=== PATIENT | male | born 1960 | race Caucasian/White ===

== ENCOUNTER 2016-10-05 15:51 | Inpatient (IN) | payer OTHER ==
[~2016-10-05] VITALS: Ht 177.8 cm; Wt 69.9 kg
[~2016-10-05 15:51] MED LIST: ASPI81CH43 PO; ATOR20TA50 PO; FER325T PO; FURO40TA4 PO; GLY25T PO; LISI-711 PO; MET25T PO; POTA10TA51 PO; TRAM50TA2 PO
[2016-10-05] MEDS ORDERED: PANTOPRAZOLE SODIUM 40 MG/10 ML VIAL IV STA (16:37)
[2016-10-05] MEDS ORDERED: SODIUM CHLORIDE 0.9% 500 ML IVB ONE (16:37)
[2016-10-05] MEDS ORDERED: HYDROmorphone HCL 2 MG/ML VL IV ONE (16:45)
[2016-10-05] MEDS ORDERED: PROCHLORPERAZINE EDISYLATE 5 MG/ML 2ML VIAL IV ONE (16:45)
[2016-10-05 17:58] LABS: Basophils # (auto) 0 uL; Basophils % (auto) 0.2 % (0.0-2.0); Eosinophils # (auto) 0 uL; Hematocrit 43.3 % (41.0-53.0); Hemoglobin 14.2 g/dL (13.5-17.5); Lymphocytes # (auto) 0.4 uL; Lymphocytes % (auto) 4.5 % (10.0-50.0); Mean Corpuscular Hgb Conc. 32.7 g/dL (32.0-36.0); Mean Corpuscular Volume 91.7 fL (80.0-100.0); Mean Platelet Volume 7.4 fL (7.4-10.4); Monocytes # (auto) 0.3 uL; Monocytes % (auto) 2.9 % (0.0-12.0); Neutrophils # (auto) 8.8 uL; Neutrophils % (auto) 92.4 % (37.0-80.0); Platelet Count (auto) 306 10^3/uL (140-450); Red Cell Distribution Width 16.7 % (11.6-16.0); White Blood Cell 9.5 10^3/uL (4.4-10.8)
[2016-10-05 18:17] LABS: Albumin 4.2 g/dL (3.4-5.0); BUN/Creatinine Ratio 15.7; Bilirubin, Total 0.6 mg/dL (0.2-1.0); Calcium 9.7 mg/dL (8.5-10.1); Magnesium 1.7 mg/dL (1.6-2.6); Potassium 3.4 mmol/L (3.5-5.1); Total Protein 7.7 g/dL (6.4-8.2)
[2016-10-05] MEDS ORDERED: METOCLOPRAMIDE HCL 5MG/ml INJ 2ml VIAL IV ONE (21:00)
[2016-10-05] MEDS ORDERED: DEXTROSE (50%) 50ML SYRG IV PRN (22:00)
[2016-10-05] MEDS ORDERED: ACETAMINOPHEN 325 MG TAB PO PRN (22:00)
[2016-10-05] MEDS ORDERED: PROMETHAZINE HCL 25 MG/ML 1ML IV PRN (22:00)
[2016-10-05] MEDS ORDERED: ASPirin 81 mg TAB PO ONE (22:15)
[2016-10-05] MEDS ORDERED: POTASSIUM CHL 10 Meq TABLET PO ONE (22:15)
[2016-10-05 22:35] VITALS: BP 102/64
[2016-10-05 22:36] LABS: Urine Bilirubin Negative (Negative); Urine Color Yellow (Yellow); Urine Nitrite Negative (Negative); Urine RBC 22 /hpf (0 - 3); Urine Urobilinogen Normal (Negative)
[2016-10-05 22:40] LABS: Urine Blood 1+ /uL (Negative); Urine Glucose 3+ mg/dL (Normal); Urine Ketone 1+ (Negative)
[2016-10-05] MEDS: SODIUM CHLORIDE 0.9% 1,000 ML IV SCH (23:08)
[2016-10-05] MEDS: ATORVASTATIN 20 MG TAB PO SCH (23:13)
[2016-10-05] MEDS: ENOXAPARIN SOD 30 MG/0.3 ML SYRINGE SC SCH (23:13)
[2016-10-05] MEDS: ONDANSETRON HCL 4 MG/2 ML VIAL IV PRN (23:14)
[2016-10-05] MEDS: MORPHINE SULF INJ 2 MG/ML SYRINGE 1ML IV PRN (23:14)
[2016-10-05] MEDS: METOPROLOL TARTRATE 25 MG TAB PO SCH (23:23)
[2016-10-06] MEDS: ACCU-CHEK COMFORT CURVE STRIP VI SCH ×5 (00:27→23:32)
[2016-10-06 04:38] VITALS: BP 127/71
[2016-10-06] MEDS: InsuLIN REG 1unit/0.01ml Soln (100units/ml) SC SCH ×5 (06:00→23:32)
[2016-10-06 07:39] LABS: Basophils # (auto) 0 uL; Basophils % (auto) 0.2 % (0.0-2.0); Eosinophils # (auto) 0 uL; Eosinophils % (auto) 0.2 % (0.0-7.0); Hematocrit 38.4 % (41.0-53.0); Hemoglobin 12.7 g/dL (13.5-17.5); Lymphocytes # (auto) 1.1 uL; Lymphocytes % (auto) 12.6 % (10.0-50.0); Mean Corpuscular Hemoglobin 30.3 pg (28.0-32.0); Mean Platelet Volume 7.2 fL (7.4-10.4); Monocytes # (auto) 0.8 uL; Monocytes % (auto) 9.1 % (0.0-12.0); Neutrophils # (auto) 6.6 uL; Neutrophils % (auto) 77.9 % (37.0-80.0); Platelet Count (auto) 285 10^3/uL (140-450); Red Cell Distribution Width 16.7 % (11.6-16.0); White Blood Cell 8.5 10^3/uL (4.4-10.8)
[2016-10-06] MEDS: FERROUS SULFATE 325 MG TAB PO SCH ×2 (08:00→17:56)
[2016-10-06 08:16] LABS: Albumin 3.5 g/dL (3.4-5.0); BUN/Creatinine Ratio 20.3; Bilirubin, Total 0.4 mg/dL (0.2-1.0); Potassium 3.8 mmol/L (3.5-5.1); Total Protein 6.6 g/dL (6.4-8.2)
[2016-10-06] MEDS: MORPHINE SULF INJ 2 MG/ML SYRINGE 1ML IV PRN ×4 (08:47→22:45)
[2016-10-06] MEDS: ONDANSETRON HCL 4 MG/2 ML VIAL IV PRN ×4 (08:47→22:45)
[2016-10-06 09:00] VITALS: BP 166/95
[2016-10-06] MEDS: ASPirin 81 mg TAB PO SCH (09:51)
[2016-10-06] MEDS: LISINOPRIL 10 MG TAB PO SCH (09:51)
[2016-10-06] MEDS: POTASSIUM CHL 10 Meq TABLET PO SCH (09:51)
[2016-10-06] MEDS: METOPROLOL TARTRATE 25 MG TAB PO SCH ×2 (09:52→22:01)
[2016-10-06] MEDS: FUROSEMIDE 40 MG TAB PO SCH (09:52)
[2016-10-06] MEDS: PANTOPRAZOLE SODIUM 40 MG/10 ML VIAL IV SCH (09:59)
[2016-10-06] MEDS: SODIUM CHLORIDE 0.9% 1,000 ML IV SCH ×2 (11:49→23:23)
[2016-10-06 13:00] VITALS: BP 153/89
[2016-10-06] MEDS ORDERED: cloNIDine HCL 0.1 MG TAB PO PRN (14:15)
[2016-10-06 16:00] VITALS: BP 145/82
[2016-10-06] MEDS: HYDROcodone-ACET 5/325MG TAB PO PRN (20:15)
[2016-10-06] MEDS: ENOXAPARIN SOD 30 MG/0.3 ML SYRINGE SC SCH (20:15)
[2016-10-06] MEDS: ATORVASTATIN 20 MG TAB PO SCH (22:01)
[2016-10-06 22:29] VITALS: BP 122/77
[2016-10-07] MEDS: MORPHINE SULF INJ 2 MG/ML SYRINGE 1ML IV PRN ×5 (03:54→23:31)
[2016-10-07] MEDS: ONDANSETRON HCL 4 MG/2 ML VIAL IV PRN ×5 (03:54→23:32)
[2016-10-07 05:30] VITALS: BP 157/89
[2016-10-07] MEDS: InsuLIN REG 1unit/0.01ml Soln (100units/ml) SC SCH ×3 (06:00→17:25)
[2016-10-07] MEDS: ACCU-CHEK COMFORT CURVE STRIP VI SCH ×3 (06:08→17:25)
[2016-10-07 06:12] LABS: Basophils # (auto) 0 uL; Basophils % (auto) 0.3 % (0.0-2.0); Eosinophils # (auto) 0 uL; Eosinophils % (auto) 0.5 % (0.0-7.0); Hematocrit 36.2 % (41.0-53.0); Hemoglobin 11.9 g/dL (13.5-17.5); Lymphocytes # (auto) 0.8 uL; Lymphocytes % (auto) 11.6 % (10.0-50.0); Mean Corpuscular Volume 90.9 fL (80.0-100.0); Mean Platelet Volume 7.2 fL (7.4-10.4); Monocytes # (auto) 0.5 uL; Monocytes % (auto) 8.2 % (0.0-12.0); Neutrophils # (auto) 5.2 uL; Neutrophils % (auto) 79.4 % (37.0-80.0); Platelet Count (auto) 256 10^3/uL (140-450); Red Cell Distribution Width 16.9 % (11.6-16.0); White Blood Cell 6.5 10^3/uL (4.4-10.8)
[2016-10-07 06:53] LABS: Albumin 3.5 g/dL (3.4-5.0); Bilirubin, Total 0.6 mg/dL (0.2-1.0); Calcium 8.8 mg/dL (8.5-10.1); Potassium 3.4 mmol/L (3.5-5.1); Total Protein 6.5 g/dL (6.4-8.2)
[2016-10-07 08:00] VITALS: BP 157/94
[2016-10-07] MEDS: FERROUS SULFATE 325 MG TAB PO SCH ×2 (08:13→17:28)
[2016-10-07] MEDS: PANTOPRAZOLE SODIUM 40 MG/10 ML VIAL IV SCH (09:12)
[2016-10-07] MEDS: LISINOPRIL 10 MG TAB PO SCH (09:13)
[2016-10-07] MEDS: ASPirin 81 mg TAB PO SCH (09:13)
[2016-10-07] MEDS: METOPROLOL TARTRATE 25 MG TAB PO SCH ×2 (09:13→22:19)
[2016-10-07] MEDS: FUROSEMIDE 40 MG TAB PO SCH (09:13)
[2016-10-07] MEDS: POTASSIUM CHL 10 Meq TABLET PO SCH (09:14)
[2016-10-07 12:00] VITALS: BP 185/97
[2016-10-07] MEDS: SODIUM CHLORIDE 0.9% 1,000 ML IV SCH (12:10)
[2016-10-07 13:27] VITALS: BP 150/90
[2016-10-07] MEDS: HYDROcodone-ACET 5/325MG TAB PO PRN ×2 (14:38→20:19)
[2016-10-07 16:00] VITALS: BP 146/86
[2016-10-07] MEDS: ENOXAPARIN SOD 30 MG/0.3 ML SYRINGE SC SCH (20:20)
[2016-10-07 22:00] VITALS: BP 154/91
[2016-10-07] MEDS: ATORVASTATIN 20 MG TAB PO SCH (22:19)
[2016-10-07] MEDS: PANTOPRAZOLE 40 MG TAB PO SCH (22:20)
[2016-10-08] MEDS: ACCU-CHEK COMFORT CURVE STRIP VI SCH ×5 (00:15→23:39)
[2016-10-08] MEDS: SODIUM CHLORIDE 0.9% 1,000 ML IV SCH ×2 (00:16→03:08)
[2016-10-08] MEDS: ONDANSETRON HCL 4 MG/2 ML VIAL IV PRN ×3 (03:31→20:30)
[2016-10-08] MEDS: MORPHINE SULF INJ 2 MG/ML SYRINGE 1ML IV PRN ×3 (03:32→20:30)
[2016-10-08] MEDS: InsuLIN REG 1unit/0.01ml Soln (100units/ml) SC SCH ×5 (05:31→23:39)
[2016-10-08 05:51] VITALS: BP 160/92
[2016-10-08 07:04] LABS: INR 1.1 (0.9-1.15); Partial Thromboplastin Time 27.8 sec (22.64-33.71); Prothrombin Time 11.3 sec (9.37-12.3)
[2016-10-08] MEDS ORDERED: LIDOCAINE VISCOUS 2% 15ML UD ONE (07:15)
[2016-10-08] MEDS ORDERED: SODIUM CHLORIDE LOCK 10 ML ONE (07:15)
[2016-10-08] MEDS ORDERED: diphenhdrAMINE HCL 50 MG/1 ML VL ONE (07:15)
[2016-10-08] MEDS: FERROUS SULFATE 325 MG TAB PO SCH ×2 (08:00→17:25)
[2016-10-08] MEDS: LISINOPRIL 10 MG TAB PO SCH (08:44)
[2016-10-08] MEDS: METOPROLOL TARTRATE 25 MG TAB PO SCH ×2 (08:45→21:24)
[2016-10-08 09:00] VITALS: BP 153/95
[2016-10-08] MEDS: FUROSEMIDE 40 MG TAB PO SCH (09:31)
[2016-10-08] MEDS: POTASSIUM CHL 10 Meq TABLET PO SCH (09:31)
[2016-10-08] MEDS: ASPirin 81 mg TAB PO SCH (09:31)
[2016-10-08] MEDS: PANTOPRAZOLE 40 MG TAB PO SCH (09:32)
[2016-10-08] MEDS: MIDAZOLAM HCL 5 MG/ML-1ML VIAL ONE ×2 (10:20→10:23)
[2016-10-08] MEDS: fentaNYL CITRATE 100 MCG/2 ML VL ONE ×2 (10:20→10:23)
[2016-10-08] MEDS: METOCLOPRAMIDE HCL 10 MG TAB PO SCH ×2 (11:59→21:24)
[2016-10-08 13:00] VITALS: BP 158/84
[2016-10-08 17:00] VITALS: BP 172/97
[2016-10-08] MEDS: HYDROcodone-ACET 5/325MG TAB PO PRN (17:30)
[2016-10-08] MEDS: ENOXAPARIN SOD 30 MG/0.3 ML SYRINGE SC SCH (20:12)
[2016-10-08 21:10] VITALS: BP 130/75
[2016-10-08] MEDS: ATORVASTATIN 20 MG TAB PO SCH (21:24)
[2016-10-09] MEDS: MORPHINE SULF INJ 2 MG/ML SYRINGE 1ML IV PRN ×2 (00:18→05:14)
[2016-10-09] MEDS: ONDANSETRON HCL 4 MG/2 ML VIAL IV PRN ×2 (00:18→05:14)
[2016-10-09] MEDS: SODIUM CHLORIDE 0.9% 1,000 ML IV SCH (01:08)
[2016-10-09 04:53] VITALS: BP 134/79
[2016-10-09] MEDS: InsuLIN REG 1unit/0.01ml Soln (100units/ml) SC SCH ×2 (05:21→12:00)
[2016-10-09] MEDS: ACCU-CHEK COMFORT CURVE STRIP VI SCH ×2 (05:21→12:00)
[2016-10-09 08:30] VITALS: BP 165/88
[2016-10-09] MEDS: FERROUS SULFATE 325 MG TAB PO SCH (08:47)
[2016-10-09] MEDS: ASPirin 81 mg TAB PO SCH (08:47)
[2016-10-09] MEDS: POTASSIUM CHL 10 Meq TABLET PO SCH (08:48)
[2016-10-09] MEDS: FUROSEMIDE 40 MG TAB PO SCH (08:48)
[2016-10-09] MEDS: METOCLOPRAMIDE HCL 10 MG TAB PO SCH (08:48)
[2016-10-09] MEDS: METOPROLOL TARTRATE 25 MG TAB PO SCH (08:49)
[2016-10-09] MEDS: LISINOPRIL 10 MG TAB PO SCH (08:49)
[2016-10-09 11:50] VITALS: BP 147/86
[2016-10-09 12:30] VITALS: BP 129/71
== END 2016-10-09 13:00 | disposition home or self-care (01) | DRG 48 ==
LOC: EDBD 15:51 → ER 15:53 → OVERFLOW 15:54 → CENTRAL 22:35
PROVIDERS: ADMIT Internal Medicine; ATTEND Internal Medicine Pulmonary Disease
PROC: 0DB68ZX Excision of Stomach, Via Natural or Artificial Opening Endoscopic, Diagnostic (ICD-10-PCS; principal; 2016-10-08 10:18)
DX: E11.43 Type 2 diabetes mellitus with diabetic autonomic (poly)neuropathy (principal); E11.21 Type 2 diabetes mellitus with diabetic nephropathy; K31.84 Gastroparesis; E11.65 Type 2 diabetes mellitus with hyperglycemia; E86.0 Dehydration; I25.10 Atherosclerotic heart disease of native coronary artery without angina pectoris; D63.8 Anemia in other chronic diseases classified elsewhere; I12.9 Hypertensive chronic kidney disease with stage 1 through stage 4 chronic kidney disease, or unspecified chronic kidney disease; N18.2 Chronic kidney disease, stage 2 (mild); E11.22 Type 2 diabetes mellitus with diabetic chronic kidney disease; E11.319 Type 2 diabetes mellitus with unspecified diabetic retinopathy without macular edema; Z79.82 Long term (current) use of aspirin; Z79.899 Other long term (current) drug therapy; Z82.3 Family history of stroke; Z82.49 Family history of ischemic heart disease and other diseases of the circulatory system; Z82.5 Family history of asthma and other chronic lower respiratory diseases; Z95.1 Presence of aortocoronary bypass graft; Z90.49 Acquired absence of other specified parts of digestive tract
CPT/HCPCS: 36415; 71010; 74176; 80053; 81001; 82150; 82962; 83036; 83690; 83735; 84484; 85025; 85610; 85730; 93005; 94761; 96361; 96374; 96375; C9113; J1815; J2250; J2405

== ENCOUNTER 2023-04-13 08:43 | Inpatient (IN) | payer MEDICAID, OTHER ==
[~2023-04-13] VITALS: Ht 177.8 cm; Wt 86.8 kg
[~2023-04-13 08:43] MED LIST changes: -GLY25T PO; +GLYB2.5T9 PO
[2023-04-13] MEDS ORDERED: SODIUM CHLORIDE 0.9% 1,000 ML IV ONE ×2 (09:00→14:15)
[2023-04-13 09:34] VITALS: O2SAT 98
[2023-04-13 09:40] LABS: Basophils # (auto) 0 10 ^3/uL (0-0.2); Basophils % (auto) 0.8 % (0.0-2.0); Eosinophils # (auto) 0.1 10 ^3/uL (0-0.8); Eosinophils % (auto) 1.1 % (0.0-7.0); Lymphocytes # (auto) 0.5 10 ^3/uL (0.4-5.4); Mean Corpuscular Volume 103.7 fL (80.0-100.0); Monocytes # (auto) 0.5 10 ^3/uL (0-1.3); Monocytes % (auto) 8.8 % (0.0-12.0); Neutrophils # (auto) 4.7 10 ^3/uL (1.6-8.6)
[2023-04-13 09:42] LABS: Hematocrit 28.4 % (41.0-53.0); Lymphocytes % (auto) 8.4 % (10.0-50.0); Mean Corpuscular Hemoglobin 36.6 pg (28.0-32.0); Mean Corpuscular Hgb Conc. 35.3 g/dL (32.0-36.0); Neutrophils % (auto) 80.9 % (37.0-80.0); Red Blood Cells 2.74 10^6/uL (4.5-5.90); Red Cell Distribution Width 12.3 % (11.8-14.3); White Blood Cell 5.8 10^3/uL (4.4-10.8)
[2023-04-13 09:51] LABS: INR 1.05 (0.9-1.15); Partial Thromboplastin Time 22.9 SEC (24.5-34.5)
[2023-04-13 09:57] LABS: Albumin 3.7 g/dL (3.4-5.0); Potassium 4.2 mmol/L (3.5-5.1)
[2023-04-13 10:01] LABS: BUN/Creatinine Ratio 13.7 (10.0-20.0); Bilirubin, Total 0.4 mg/dL (0.2-1.0); Total Protein 7.6 g/dL (6.4-8.2)
[2023-04-13 12:44] LABS: Urine Amorphous Crystal FEW /hpf (None Seen); Urine Bacteria NONE SEEN /hpf (None Seen); Urine Blood Negative /uL (Negative); Urine Specific Gravity 1.014 (1.001-1.035); Urine WBC 1 /hpf (0 - 3)
[2023-04-13] MEDS: SODIUM CHLORIDE 0.9% 1,000 ML IV SCH ×3 (13:14→23:30)
[2023-04-13 13:24] LABS: Magnesium 2.2 mg/dL (1.6-2.6); Phosphorus 4.5 mg/dL (2.5-4.90)
[2023-04-13] MEDS ORDERED: DEXTROSE (50%) 50ML SYRG IV PRN (14:15)
[2023-04-13 15:00] LABS: Basophils # (auto) 0 10 ^3/uL (0-0.2); Eosinophils # (auto) 0 10 ^3/uL (0-0.8); Lymphocytes # (auto) 0.4 10 ^3/uL (0.4-5.4); Mean Corpuscular Volume 104.1 fL (80.0-100.0); Neutrophils # (auto) 3.9 10 ^3/uL (1.6-8.6); White Blood Cell 4.9 10^3/uL (4.4-10.8)
[2023-04-13 15:02] LABS: Basophils % (auto) 0.8 % (0.0-2.0); Eosinophils % (auto) 0.8 % (0.0-7.0); Hematocrit 25.2 % (41.0-53.0); Hemoglobin 8.9 g/dL (13.5-17.5); Lymphocytes % (auto) 8.8 % (10.0-50.0); Mean Corpuscular Hemoglobin 36.6 pg (28.0-32.0); Mean Corpuscular Hgb Conc. 35.1 g/dL (32.0-36.0); Monocytes # (auto) 0.4 10 ^3/uL (0-1.3); Monocytes % (auto) 9.2 % (0.0-12.0); Neutrophils % (auto) 80.4 % (37.0-80.0); Red Blood Cells 2.42 10^6/uL (4.5-5.90); Red Cell Distribution Width 12.2 % (11.8-14.3)
[2023-04-13 15:08] LABS: Magnesium 2.2 mg/dL (1.6-2.6)
[2023-04-13 15:16] LABS: Albumin 3.5 g/dL (3.4-5.0); BUN/Creatinine Ratio 14.5 (10.0-20.0); Bilirubin, Total 0.3 mg/dL (0.2-1.0); Phosphorus 4.4 mg/dL (2.5-4.90)
[2023-04-13 15:24] LABS: Calcium 14.4 mg/dL (8.5-10.1)
[2023-04-13 16:24] LABS: Creatinine, Urine 78 mg/dL (30.0-125.0); Sodium Urine 52 mmol/L (40-220)
[2023-04-13] MEDS: InsuLIN REG 1unit/0.01ml Soln (100units/ml) SC SCH ×2 (16:49→22:00)
[2023-04-13] MEDS: ACCU-CHEK COMFORT CURVE STRIP VI SCH ×2 (16:49→22:15)
[2023-04-13] MEDS ORDERED: amLODIPine BESYLATE 5 MG TAB PO ONE (17:00)
[2023-04-13 17:23] LABS: Protein, Urine 84.3 mg/dL (0.0-11.9)
[2023-04-13] MEDS: FERROUS SULFATE 325mg EC TAB PO SCH (18:36)
[2023-04-13 19:30] VITALS: PULSE 96; RESP 16; O2SAT 98
[2023-04-13] MEDS ORDERED: ATORVASTATIN 20 MG TAB PO SCH (22:00)
[2023-04-13] MEDS: METOPROLOL TARTRATE 25 MG TAB PO SCH (22:16)
[2023-04-13] MEDS: ATORVASTATIN 20 MG TAB PO SCH (22:17)
[2023-04-14] VITALS (9 sets, daily range): BP systolic 66–167; BP diastolic 8–96; PULSE 66–103; RESP 15–19; TEMP 98–99.2; O2SAT 92–98
[2023-04-14] MEDS ORDERED: PNEUMOCOCCAL VACC POLYS 25 MCG/0.5 ML VIAL IM ONE (02:30)
[2023-04-14] MEDS: ACCU-CHEK COMFORT CURVE STRIP VI SCH ×4 (05:13→21:33)
[2023-04-14] MEDS: SODIUM CHLORIDE 0.9% 1,000 ML IV SCH ×6 (05:13→21:34)
[2023-04-14] MEDS: InsuLIN REG 1unit/0.01ml Soln (100units/ml) SC SCH ×4 (05:13→21:33)
[2023-04-14 06:07] LABS: RPR Non Reactive (Non Reactive)
[2023-04-14 06:10] LABS: BUN/Creatinine Ratio 15.3 (10.0-20.0); Calcium 12.9 mg/dL (8.5-10.1); Phosphorus 3.5 mg/dL (2.5-4.90); Potassium 3.8 mmol/L (3.5-5.1); Uric Acid 6.1 mg/dL (3.5-7.2)
[2023-04-14] MEDS: ASPirin 81 mg TAB PO SCH (09:22)
[2023-04-14] MEDS: FERROUS SULFATE 325mg EC TAB PO SCH ×2 (09:22→18:15)
[2023-04-14] MEDS: amLODIPine BESYLATE 5 MG TAB PO SCH (09:22)
[2023-04-14] MEDS: METOPROLOL TARTRATE 25 MG TAB PO SCH ×2 (09:24→21:32)
[2023-04-14] MEDS ORDERED: FUROSEMIDE 40 MG TAB PO SCH (10:00)
[2023-04-14] MEDS ORDERED: LISINOPRIL 20 MG TAB PO SCH (10:00)
[2023-04-14] MEDS ORDERED: POTASSIUM CHL 20 Meq TABLET PO ONE (14:15)
[2023-04-14 15:12] LABS: % Iron Saturation 7.8 % (20-55)
[2023-04-14 15:20] LABS: Potassium 4.1 mmol/L (3.5-5.1)
[2023-04-14 15:45] LABS: BUN/Creatinine Ratio 15.1 (10.0-20.0); Bilirubin, Total 0.5 mg/dL (0.2-1.0); Total Protein 6.7 g/dL (6.4-8.2)
[2023-04-14 16:01] LABS: Ferritin 92.1 ng/mL (10-322)
[2023-04-14 16:06] LABS: Folate (Folic Acid) > 24.00 ng/mL (5.38-24)
[2023-04-14] MEDS: ATORVASTATIN 20 MG TAB PO SCH (21:32)
[2023-04-14] MEDS: DOCUSATE SOD 100 MG CAP PO SCH (21:32)
[2023-04-15] VITALS (9 sets, daily range): BP systolic 146–162; BP diastolic 71–85; PULSE 71–96; RESP 16–18; TEMP 97.2–98.4; O2SAT 96–99
[2023-04-15] MEDS: SODIUM CHLORIDE 0.9% 1,000 ML IV SCH ×4 (01:12→11:34)
[2023-04-15] MEDS: InsuLIN REG 1unit/0.01ml Soln (100units/ml) SC SCH ×4 (06:24→21:31)
[2023-04-15] MEDS: ACCU-CHEK COMFORT CURVE STRIP VI SCH ×4 (06:24→21:30)
[2023-04-15 06:47] LABS: Basophils # (auto) 0 10 ^3/uL (0-0.2); Eosinophils # (auto) 0.1 10 ^3/uL (0-0.8); Lymphocytes # (auto) 0.6 10 ^3/uL (0.4-5.4); Monocytes # (auto) 0.5 10 ^3/uL (0-1.3); Neutrophils # (auto) 3.6 10 ^3/uL (1.6-8.6)
[2023-04-15 06:51] LABS: Basophils % (auto) 0.8 % (0.0-2.0); Eosinophils % (auto) 2.9 % (0.0-7.0); Hematocrit 22.8 % (41.0-53.0); Hemoglobin 8.3 g/dL (13.5-17.5); Lymphocytes % (auto) 11.9 % (10.0-50.0); Mean Corpuscular Hemoglobin 37.7 pg (28.0-32.0); Mean Corpuscular Hgb Conc. 36.3 g/dL (32.0-36.0); Mean Corpuscular Volume 103.9 fL (80.0-100.0); Monocytes % (auto) 9.4 % (0.0-12.0); Nucleated Red Blood Cells % 0.1 %; Red Blood Cells 2.19 10^6/uL (4.5-5.90); Red Cell Distribution Width 12.4 % (11.8-14.3); White Blood Cell 4.9 10^3/uL (4.4-10.8)
[2023-04-15 07:07] LABS: Immunoglobulin G, Serum 1353 mg/dL (603-1613)
[2023-04-15 07:19] LABS: Calcium 11.6 mg/dL (8.5-10.1); Potassium 3.8 mmol/L (3.5-5.1)
[2023-04-15 07:24] LABS: BUN/Creatinine Ratio 13.9 (10.0-20.0); Bilirubin, Total 0.5 mg/dL (0.2-1.0); Magnesium 1.9 mg/dL (1.6-2.6); Total Protein 6.6 g/dL (6.4-8.2); Uric Acid 5.7 mg/dL (3.5-7.2)
[2023-04-15] MEDS: METOPROLOL TARTRATE 25 MG TAB PO SCH ×2 (08:46→21:30)
[2023-04-15] MEDS: DOCUSATE SOD 100 MG CAP PO SCH ×2 (08:46→21:30)
[2023-04-15] MEDS: ASPirin 81 mg TAB PO SCH (08:46)
[2023-04-15] MEDS: FERROUS SULFATE 325mg EC TAB PO SCH ×2 (08:46→18:06)
[2023-04-15] MEDS: amLODIPine BESYLATE 5 MG TAB PO SCH (08:47)
[2023-04-15] MEDS ORDERED: SENNA 8.6 MG TAB PO ONE (09:45)
[2023-04-15] MEDS ORDERED: FLEET ENEMA(ADULT) 135 ML PR ONE ×2 (13:15→13:45)
[2023-04-15] MEDS ORDERED: POTASSIUM CHL 20 Meq TABLET PO ONE (14:00)
[2023-04-15] MEDS: ATORVASTATIN 20 MG TAB PO SCH (21:30)
[2023-04-16] VITALS (8 sets, daily range): BP systolic 90–160; BP diastolic 57–87; PULSE 53–88; RESP 16–18; TEMP 97.7–98.6; O2SAT 97–100
[2023-04-16] MEDS: SODIUM CHLORIDE 0.9% 1,000 ML IV SCH ×2 (01:00→12:37)
[2023-04-16 06:02] LABS: BUN/Creatinine Ratio 13.1 (10.0-20.0)
[2023-04-16] MEDS: ACCU-CHEK COMFORT CURVE STRIP VI SCH ×4 (06:32→21:48)
[2023-04-16] MEDS: InsuLIN REG 1unit/0.01ml Soln (100units/ml) SC SCH ×4 (06:33→21:48)
[2023-04-16] MEDS: DOCUSATE SOD 100 MG CAP PO SCH ×2 (09:14→21:47)
[2023-04-16] MEDS: LACTULOSE 20Gm/30ML SOLN PO SCH (09:14)
[2023-04-16] MEDS: ASPirin 81 mg TAB PO SCH (09:14)
[2023-04-16] MEDS: FERROUS SULFATE 325mg EC TAB PO SCH ×2 (09:14→18:47)
[2023-04-16] MEDS: METOPROLOL TARTRATE 25 MG TAB PO SCH ×2 (09:14→21:47)
[2023-04-16] MEDS: amLODIPine BESYLATE 5 MG TAB PO SCH (09:15)
[2023-04-16] MEDS: ATORVASTATIN 20 MG TAB PO SCH (21:46)
[2023-04-17] VITALS (9 sets, daily range): BP systolic 135–170; BP diastolic 63–85; PULSE 51–87; RESP 18–19; TEMP 97.9–98.6; O2SAT 98–100
[2023-04-17] MEDS: SODIUM CHLORIDE 0.9% 1,000 ML IV SCH ×3 (01:11→23:27)
[2023-04-17] MEDS: ACCU-CHEK COMFORT CURVE STRIP VI SCH ×4 (05:55→21:56)
[2023-04-17] MEDS: InsuLIN REG 1unit/0.01ml Soln (100units/ml) SC SCH ×4 (05:55→21:58)
[2023-04-17 06:23] LABS: BUN/Creatinine Ratio 11.8 (10.0-20.0); Potassium 3.8 mmol/L (3.5-5.1)
[2023-04-17] MEDS: LACTULOSE 20Gm/30ML SOLN PO SCH (09:32)
[2023-04-17] MEDS: DOCUSATE SOD 100 MG CAP PO SCH ×2 (09:33→21:53)
[2023-04-17] MEDS: FERROUS SULFATE 325mg EC TAB PO SCH ×2 (09:33→17:54)
[2023-04-17] MEDS: METOPROLOL TARTRATE 25 MG TAB PO SCH ×2 (09:34→21:53)
[2023-04-17] MEDS: amLODIPine BESYLATE 5 MG TAB PO SCH (09:34)
[2023-04-17] MEDS: ASPirin 81 mg TAB PO SCH (09:34)
[2023-04-17] MEDS ORDERED: FUROSEMIDE 20 MG TAB PO ONE (11:15)
[2023-04-17 12:08] LABS: BUN/Creatinine Ratio 12.4 (10.0-20.0); Calcium 10.8 mg/dL (8.5-10.1); Potassium 3.9 mmol/L (3.5-5.1)
[2023-04-17] MEDS: ATORVASTATIN 20 MG TAB PO SCH (21:52)
[2023-04-18 05:00] VITALS: BP 151/64; PULSE 85; RESP 20; TEMP 98.2; O2SAT 98
[2023-04-18 05:59] LABS: Basophils # (auto) 0 10 ^3/uL (0-0.2); Eosinophils # (auto) 0.2 10 ^3/uL (0-0.8); Hematocrit 23.4 % (41.0-53.0); Hemoglobin 8.4 g/dL (13.5-17.5); Lymphocytes # (auto) 0.7 10 ^3/uL (0.4-5.4); Monocytes # (auto) 0.4 10 ^3/uL (0-1.3); Neutrophils # (auto) 2.7 10 ^3/uL (1.6-8.6); Red Blood Cells 2.27 10^6/uL (4.5-5.90); Red Cell Distribution Width 12.1 % (11.8-14.3); White Blood Cell 4.1 10^3/uL (4.4-10.8)
[2023-04-18 06:04] LABS: Basophils % (auto) 1.2 % (0.0-2.0); Eosinophils % (auto) 5.3 % (0.0-7.0); Lymphocytes % (auto) 16.5 % (10.0-50.0); Mean Corpuscular Hemoglobin 37.1 pg (28.0-32.0); Monocytes % (auto) 10.1 % (0.0-12.0); Neutrophils % (auto) 66.9 % (37.0-80.0); Nucleated Red Blood Cells % 0.2 %
[2023-04-18 06:11] LABS: BUN/Creatinine Ratio 11.8 (10.0-20.0); Calcium 10.5 mg/dL (8.5-10.1); Potassium 3.4 mmol/L (3.5-5.1)
[2023-04-18] MEDS: ACCU-CHEK COMFORT CURVE STRIP VI SCH ×4 (06:33→21:34)
[2023-04-18] MEDS: InsuLIN REG 1unit/0.01ml Soln (100units/ml) SC SCH ×4 (06:35→21:34)
[2023-04-18 08:00] VITALS: BP_SYST 124; BP_SYST 166; BP_DIAS 70; BP_DIAS 83; PULSE 78; PULSE 79; PULSE 82; PULSE 84; RESP 16; RESP 18; TEMP 97.8; TEMP 97.9; O2SAT 100
[2023-04-18] MEDS ORDERED: POTASSIUM CHL 20 Meq TABLET PO ONE (08:45)
[2023-04-18] MEDS: DOCUSATE SOD 100 MG CAP PO SCH ×2 (10:00→21:30)
[2023-04-18] MEDS: LACTULOSE 20Gm/30ML SOLN PO SCH (10:00)
[2023-04-18] MEDS: amLODIPine BESYLATE 5 MG TAB PO SCH (10:15)
[2023-04-18] MEDS: ASPirin 81 mg TAB PO SCH (10:15)
[2023-04-18] MEDS: METOPROLOL TARTRATE 50 MG TAB PO SCH ×2 (10:16→21:31)
[2023-04-18] MEDS: FERROUS SULFATE 325mg EC TAB PO SCH ×2 (10:16→16:42)
[2023-04-18 12:00] VITALS: BP 167/92; PULSE 85; RESP 18; TEMP 98.5; O2SAT 100
[2023-04-18] MEDS: SODIUM CHLORIDE 0.9% 1,000 ML IV SCH (15:30)
[2023-04-18 16:00] VITALS: BP 159/60; PULSE 76; RESP 16; TEMP 98.4; O2SAT 99
[2023-04-18] MEDS: hydrALAZINE HCL 20 MG/ML VL IV PRN ×2 (16:26→22:40)
[2023-04-18] MEDS ORDERED: HYDROcodone-ACET 5/325MG TAB PO PRN (17:30)
[2023-04-18] MEDS: HYDROcodone-ACET 5/325MG TAB PO PRN (18:24)
[2023-04-18 20:00] VITALS: PULSE 78; PULSE 80; RESP 16
[2023-04-18] MEDS: ATORVASTATIN 20 MG TAB PO SCH (21:31)
[2023-04-18 22:00] VITALS: BP 156/84; PULSE 83; RESP 20; TEMP 98.4; O2SAT 99
[2023-04-18] MEDS: TEMAZEPAM 15 MG CAP PO PRN (22:33)
[2023-04-19] VITALS (8 sets, daily range): BP systolic 124–156; BP diastolic 70–82; PULSE 61–86; RESP 15–18; TEMP 97.9–98.7; O2SAT 97–100
[2023-04-19] MEDS: SODIUM CHLORIDE 0.9% 1,000 ML IV SCH ×3 (00:28→21:33)
[2023-04-19] MEDS: HYDROcodone-ACET 5/325MG TAB PO PRN ×3 (00:31→22:50)
[2023-04-19 05:57] LABS: BUN/Creatinine Ratio 10.6 (10.0-20.0); Calcium 9.5 mg/dL (8.5-10.1); Magnesium 1.5 mg/dL (1.6-2.6); Potassium 3.7 mmol/L (3.5-5.1)
[2023-04-19] MEDS: InsuLIN REG 1unit/0.01ml Soln (100units/ml) SC SCH ×4 (06:07→21:40)
[2023-04-19] MEDS: ACCU-CHEK COMFORT CURVE STRIP VI SCH ×4 (06:07→21:34)
[2023-04-19] MEDS ORDERED: MAGNESIUM OXIDE 400 MG TAB PO ONE (09:00)
[2023-04-19] MEDS ORDERED: MIDAZOLAM HCL 2MG/2ML 2ml VIAL (1mg/ml) IV ONE (10:00)
[2023-04-19] MEDS ORDERED: fentaNYL CITRATE 100 MCG/2 ML VL IV ONE (10:00)
[2023-04-19] MEDS: DOCUSATE SOD 100 MG CAP PO SCH ×2 (10:00→21:43)
[2023-04-19] MEDS: LACTULOSE 20Gm/30ML SOLN PO SCH (10:00)
[2023-04-19] MEDS: ASPirin 81 mg TAB PO SCH (10:01)
[2023-04-19] MEDS: FERROUS SULFATE 325mg EC TAB PO SCH ×2 (10:01→19:00)
[2023-04-19] MEDS: amLODIPine BESYLATE 5 MG TAB PO SCH (10:02)
[2023-04-19] MEDS ORDERED: LIDOCAINE 2%HCL (LOCAL ANESTH.) INJ 10ml MDV ONE (10:38)
[2023-04-19] MEDS: METOPROLOL TARTRATE 50 MG TAB PO SCH ×2 (19:13→21:43)
[2023-04-19] MEDS: ATORVASTATIN 20 MG TAB PO SCH (21:42)
[2023-04-19] MEDS: TEMAZEPAM 15 MG CAP PO PRN (22:50)
[2023-04-20] VITALS (7 sets, daily range): BP systolic 142–167; BP diastolic 69–83; PULSE 60–79; RESP 15–18; TEMP 98–98.4; O2SAT 96–100
[2023-04-20] MEDS: METOPROLOL TARTRATE 50 MG TAB PO SCH ×3 (05:01→22:03)
[2023-04-20] MEDS: InsuLIN REG 1unit/0.01ml Soln (100units/ml) SC SCH ×4 (06:07→22:01)
[2023-04-20] MEDS: ACCU-CHEK COMFORT CURVE STRIP VI SCH ×4 (06:07→22:02)
[2023-04-20 07:00] LABS: Potassium 4.3 mmol/L (3.5-5.1)
[2023-04-20 07:05] LABS: BUN/Creatinine Ratio 10.4 (10.0-20.0); Calcium 9.9 mg/dL (8.5-10.1); Magnesium 1.9 mg/dL (1.6-2.6)
[2023-04-20] MEDS: DOCUSATE SOD 100 MG CAP PO SCH ×2 (10:00→22:03)
[2023-04-20] MEDS: LACTULOSE 20Gm/30ML SOLN PO SCH (10:00)
[2023-04-20] MEDS: FERROUS SULFATE 325mg EC TAB PO SCH ×2 (10:46→18:24)
[2023-04-20] MEDS: ASPirin 81 mg TAB PO SCH (10:46)
[2023-04-20] MEDS: amLODIPine BESYLATE 5 MG TAB PO SCH (10:47)
[2023-04-20] MEDS: SODIUM CHLORIDE 0.9% 1,000 ML IV SCH ×2 (10:49→14:30)
[2023-04-20 11:24] LABS: INR 1.09 (0.9-1.15); Partial Thromboplastin Time 30.8 SEC (24.5-34.5)
[2023-04-20] MEDS: HYDROcodone-ACET 5/325MG TAB PO PRN ×2 (11:47→22:03)
[2023-04-20] MEDS: TEMAZEPAM 15 MG CAP PO PRN (22:03)
[2023-04-20] MEDS: ATORVASTATIN 20 MG TAB PO SCH (22:03)
[2023-04-21] VITALS (8 sets, daily range): BP systolic 120–161; BP diastolic 70–88; PULSE 49–81; RESP 15–18; TEMP 97.4–98.3; O2SAT 90–100
[2023-04-21] MEDS: SODIUM CHLORIDE 0.9% 1,000 ML IV SCH ×2 (03:50→17:10)
[2023-04-21 05:50] LABS: Urine Bacteria NONE SEEN /hpf (None Seen); Urine Blood Negative /uL (Negative); Urine Specific Gravity 1.013 (1.001-1.035); Urine WBC 1 /hpf (0 - 3)
[2023-04-21] MEDS: METOPROLOL TARTRATE 50 MG TAB PO SCH ×3 (05:55→22:24)
[2023-04-21] MEDS: ACCU-CHEK COMFORT CURVE STRIP VI SCH ×4 (06:48→22:25)
[2023-04-21] MEDS: InsuLIN REG 1unit/0.01ml Soln (100units/ml) SC SCH ×4 (06:49→22:27)
[2023-04-21 07:00] LABS: Potassium 3.9 mmol/L (3.5-5.1)
[2023-04-21 07:08] LABS: BUN/Creatinine Ratio 9.9 (10.0-20.0); Calcium 9.6 mg/dL (8.5-10.1); Magnesium 1.8 mg/dL (1.6-2.6)
[2023-04-21] MEDS: FERROUS SULFATE 325mg EC TAB PO SCH ×2 (08:00→18:31)
[2023-04-21] MEDS ORDERED: fentaNYL CITRATE 100 MCG/2 ML VL ONE (09:43)
[2023-04-21] MEDS ORDERED: MIDAZOLAM HCL 2MG/2ML 2ml VIAL (1mg/ml) ONE (09:43)
[2023-04-21] MEDS ORDERED: MEPERIDINE HCL (50 MG/ML) 1 ML VIAL ONE (09:43)
[2023-04-21] MEDS ORDERED: PROPOFOL 10 MG/ML 20 ML IV ONE (09:51)
[2023-04-21] MEDS ORDERED: DexAMETHasone SOD PHOS 10MG/1ML VIAL INJ ONE (09:51)
[2023-04-21] MEDS ORDERED: ONDANSETRON HCL 4 MG/2 ML VIAL IV ONE (09:55)
[2023-04-21] MEDS: amLODIPine BESYLATE 5 MG TAB PO SCH (10:00)
[2023-04-21] MEDS: LACTULOSE 20Gm/30ML SOLN PO SCH (10:00)
[2023-04-21] MEDS: ASPirin 81 mg TAB PO SCH (10:00)
[2023-04-21] MEDS: DOCUSATE SOD 100 MG CAP PO SCH ×2 (10:00→22:23)
[2023-04-21] MEDS ORDERED: ceFAZolin 1GM/50ML 100 ML IV ONE (10:07)
[2023-04-21] MEDS ORDERED: MORPHINE SULFATE 4 MG/ML SYR/VIAL IV PRN (10:30)
[2023-04-21] MEDS ORDERED: MIDAZOLAM HCL 2MG/2ML 2ml VIAL (1mg/ml) IV PRN (10:30)
[2023-04-21] MEDS ORDERED: LABETALOL HCL 5 MG/ML 4ML SYRINGE IV PRN (10:30)
[2023-04-21] MEDS ORDERED: ePHEDrine SULFATE 50 MG/ML AMP IV PRN (10:30)
[2023-04-21] MEDS ORDERED: HYDROmorphone HCL 2 MG/ML VL/or syr IV PRN (10:30)
[2023-04-21] MEDS ORDERED: ONDANSETRON HCL 4 MG/2 ML VIAL IV PRN (10:30)
[2023-04-21] MEDS: BUPIVACAINE 0.25% INJ 50ML VIAL ONE ×2 (10:43→11:30)
[2023-04-21] MEDS: HYDROcodone-ACET 5/325MG TAB PO PRN (18:59)
[2023-04-21] MEDS: TEMAZEPAM 15 MG CAP PO PRN (22:23)
[2023-04-21] MEDS: ATORVASTATIN 20 MG TAB PO SCH (22:23)
[2023-04-22 05:00] VITALS: BP 110/63; PULSE 77; RESP 18; TEMP 97.3; O2SAT 98
[2023-04-22 06:05] LABS: Basophils # (auto) 0 10 ^3/uL (0-0.2); Basophils % (auto) 0.1 % (0.0-2.0); Eosinophils # (auto) 0 10 ^3/uL (0-0.8); Hemoglobin 8.2 g/dL (13.5-17.5); Lymphocytes # (auto) 0.4 10 ^3/uL (0.4-5.4); Monocytes # (auto) 0.3 10 ^3/uL (0-1.3); Monocytes % (auto) 6.3 % (0.0-12.0); Neutrophils # (auto) 4.1 10 ^3/uL (1.6-8.6); White Blood Cell 4.8 10^3/uL (4.4-10.8)
[2023-04-22 06:08] LABS: Potassium 4.6 mmol/L (3.5-5.1)
[2023-04-22 06:09] LABS: Hematocrit 22.6 % (41.0-53.0); Lymphocytes % (auto) 8.1 % (10.0-50.0); Mean Corpuscular Hemoglobin 37.4 pg (28.0-32.0); Mean Corpuscular Hgb Conc. 36.4 g/dL (32.0-36.0); Mean Corpuscular Volume 102.7 fL (80.0-100.0); Neutrophils % (auto) 85.5 % (37.0-80.0); Red Cell Distribution Width 11.9 % (11.8-14.3)
[2023-04-22 06:15] LABS: BUN/Creatinine Ratio 10.2 (10.0-20.0); Bilirubin, Total 0.3 mg/dL (0.2-1.0); Calcium 9.4 mg/dL (8.5-10.1); Magnesium 1.8 mg/dL (1.6-2.6); Phosphorus 2.4 mg/dL (2.5-4.90); Total Protein 6.5 g/dL (6.4-8.2)
[2023-04-22] MEDS: SODIUM CHLORIDE 0.9% 1,000 ML IV SCH (06:30)
[2023-04-22] MEDS: InsuLIN REG 1unit/0.01ml Soln (100units/ml) SC SCH ×3 (06:38→17:00)
[2023-04-22] MEDS: ACCU-CHEK COMFORT CURVE STRIP VI SCH ×3 (06:39→17:00)
[2023-04-22] MEDS: METOPROLOL TARTRATE 50 MG TAB PO SCH ×2 (06:39→14:00)
[2023-04-22 08:00] VITALS: BP 161/82; PULSE 75; PULSE 78; RESP 15; TEMP 98.3; O2SAT 98
[2023-04-22] MEDS: FERROUS SULFATE 325mg EC TAB PO SCH (08:20)
[2023-04-22 09:00] VITALS: BP 122/86; PULSE 75; RESP 16; TEMP 98.1; O2SAT 97
[2023-04-22] MEDS: LACTULOSE 20Gm/30ML SOLN PO SCH (09:20)
[2023-04-22] MEDS: DOCUSATE SOD 100 MG CAP PO SCH (09:21)
[2023-04-22] MEDS: ASPirin 81 mg TAB PO SCH (09:21)
[2023-04-22] MEDS: amLODIPine BESYLATE 5 MG TAB PO SCH (09:21)
[2023-04-22 13:00] VITALS: BP 144/58; PULSE 79; RESP 18; TEMP 98.3; O2SAT 99
[2023-04-22 16:34] VITALS: BP 122/86; PULSE 71; TEMP 36.8
== END 2023-04-22 17:07 | disposition home or self-care (01) | DRG 204 ==
LOC: ER 08:43 → EDBD 08:43 → TELE 13:07 → TELE-CENTR 04-14 01:27
PROVIDERS: ADMIT Internal Medicine; ATTEND Student in an Organized Health Care Education/Training Program
PROC: 07DR3ZX Extraction of Iliac Bone Marrow, Percutaneous Approach, Diagnostic (ICD-10-PCS; 2023-04-19)
PROC: 0WBC4ZX Excision of Mediastinum, Percutaneous Endoscopic Approach, Diagnostic (ICD-10-PCS; principal; 2023-04-21 10:27)
DX: I95.1 Orthostatic hypotension (principal); N17.0 Acute kidney failure with tubular necrosis; D52.0 Dietary folate deficiency anemia; D62 Acute posthemorrhagic anemia; D63.8 Anemia in other chronic diseases classified elsewhere; E86.0 Dehydration; E11.22 Type 2 diabetes mellitus with diabetic chronic kidney disease; J90 Pleural effusion, not elsewhere classified; I13.10 Hypertensive heart and chronic kidney disease without heart failure, with stage 1 through stage 4 chronic kidney disease, or unspecified chronic kidney disease; E83.52 Hypercalcemia; E86.1 Hypovolemia; E86.9 Volume depletion, unspecified; R59.0 Localized enlarged lymph nodes; E78.5 Hyperlipidemia, unspecified; S01.111A Laceration without foreign body of right eyelid and periocular area, initial encounter; I25.10 Atherosclerotic heart disease of native coronary artery without angina pectoris; F17.290 Nicotine dependence, other tobacco product, uncomplicated; G89.29 Other chronic pain; M54.50 Low back pain, unspecified; E87.6 Hypokalemia; R63.4 Abnormal weight loss; K59.00 Constipation, unspecified; I65.23 Occlusion and stenosis of bilateral carotid arteries; J98.11 Atelectasis; X58.XXXA Exposure to other specified factors, initial encounter; M54.9 Dorsalgia, unspecified; K21.9 Gastro-esophageal reflux disease without esophagitis; N18.32 Chronic kidney disease, stage 3b; R29.6 Repeated falls; Z79.82 Long term (current) use of aspirin; Z79.899 Other long term (current) drug therapy; Z95.1 Presence of aortocoronary bypass graft; Z82.3 Family history of stroke; Z82.49 Family history of ischemic heart disease and other diseases of the circulatory system; Z82.5 Family history of asthma and other chronic lower respiratory diseases; Z86.16 Personal history of COVID-19; Z68.26 Body mass index [BMI] 26.0-26.9, adult; Z90.49 Acquired absence of other specified parts of digestive tract; Y93.89 Activity, other specified; Y92.89 Other specified places as the place of occurrence of the external cause; Y99.8 Other external cause status
CPT/HCPCS: 10005; 36415; 70450; 71045; 71250; 72192; 74176; 77012; 77074; 80048; 80053; 80061; 81001; 82043; 82164; 82270; 82306; 82310; 82330; 82570; 82607; 82728; 82746; 82784; 82962; 83036; 83540; 83550; 83615; 83735; 83970; 84100; 84155; 84156; 84165; 84166; 84300; 84443; 84484; 84550; 85025; 85045; 85610; 85730; 86334; 86592; 86850; 86880; 86900; 86901; 87081; 92610; 93005; 93306; 93886; 97110; 97116; 97163; 97530; G0378; J0690; J1100; J1815; J2001; J2250; J2405; J2704; J3490